=== PATIENT | female | born 1950 | race American Indian/Alaskan Native ===

== ENCOUNTER 2017-09-28 07:36 | Outpatient (CLI) | payer MEDICARE, MEDICAID ==
[~2017-09-28] VITALS: Ht 157.5 cm; Wt 59.5 kg
[2017-09-28] VITALS (8 sets, daily range): BP systolic 97–125; BP diastolic 58–71
[~2017-09-28 07:36] MED LIST: CLIN-80 PO; FAMO20TA8 PO; IBUP-1985 PO; LORA10TA7 PO; METF500T4 PO; NICO-668 PO
[2017-09-28] MEDS ORDERED: regadenoson 0.4mg/5ml syringe IV ONE ×2 (08:45→08:55)
[2017-09-28] MEDS ORDERED: aminophylline 250mg/10ml inj. IV PRN (08:45)
[2017-09-28] MEDS ORDERED: metoprolol tartrate 1mg/ml inj IV PRN (08:45)
[2017-09-28] MEDS ORDERED: nitroGLYCERIN 0.4mg SUBLingual tab SL PRN (08:45)
[2017-09-28] MEDS ORDERED: aminophylline inj. 0 ML IV ONE (08:55)
== END 2017-09-28 23:59 | disposition home or self-care (01) ==
LOC: RAD 07:36
PROVIDERS: ATTEND Internal Medicine Cardiovascular Disease
DX: Z01.818 Encounter for other preprocedural examination (principal); E11.9 Type 2 diabetes mellitus without complications; F17.200 Nicotine dependence, unspecified, uncomplicated
CPT/HCPCS: 78452; A9500; J0280

== ENCOUNTER 2018-05-11 22:22 | Emergency (ER) | payer MEDICARE, MEDICAID ==
[~2018-05-11] VITALS: Ht 157.5 cm; Wt 59.1 kg
[~2018-05-11 22:22] MED LIST changes: -CLIN-80 PO; +CLIN300C85 PO; -METF500T4 PO; +METF500T6 PO
[2018-05-11 22:43] LABS: BASOPHILS # (AUTO) 0.1 X10'3 (0-0.2); BASOPHILS % (AUTO) 0.6 % (0-1); EOSINOPHILS # (AUTO) 0.2 X10'3 (0-0.9); EOSINOPHILS % (AUTO) 1.8 % (0-6); HEMATOCRIT 35.9 % (35.0-45.0); HEMOGLOBIN 12.3 g/dl (12.0-16.0); LYMPHOCYTES # (AUTO) 3.1 X10'3 (1.1-4.8); LYMPHOCYTES % (AUTO) 30.4 % (21-51); MEAN CORPUSCULAR HEMOGLOBIN 30.6 PG (27.0-31.0); MEAN CORPUSCULAR HGB CONC 34.3 % (33.0-36.5); MEAN CORPUSCULAR VOLUME 89.3 FL (78-98); MEAN PLATELET VOLUME 8.4 FL (7.4-10.4); MONOCYTES # (AUTO) 0.6 X10'3 (0-0.9); MONOCYTES % (AUTO) 6.2 % (2-12); NEUTROPHILS # (AUTO) 6.3 X10'3 (1.8-7.7); PLATELET COUNT 288 X10'3 (140-440); RED BLOOD COUNT 4.02 X10'6 (4.20-5.60); RED CELL DISTRIBUTION WIDTH 12.8 % (11.5-14.5); WHITE BLOOD COUNT 10.3 X10'3 (4.5-11.0)
[2018-05-11 23:01] LABS: ALANINE AMINOTRANSFERASE 18 U/L (12-78); ALBUMIN 3.8 G/DL (3.4-5.0); ALBUMIN/GLOBULIN RATIO 1.2 (1.1-1.5); ALKALINE PHOSPHATASE 57 IU/L (46-116); ANION GAP 9 (8-16); ASPARTATE AMINO TRANSFERASE 13 U/L (10-37); BILIRUBIN,TOTAL 0.2 MG/DL (0.1-1.0); BLOOD UREA NITROGEN 11 MG/DL (7-18); BUN/CREATININE RATIO 12.8 (6.6-38.0); CHLORIDE 104 MMOL/L (99-107); CREATININE 0.86 MG/DL (0.40-0.90); GLUCOSE 106 MG/DL (70-104); SODIUM 140 MMOL/L (135-145); TOTAL CARBON DIOXIDE 26.9 MMOL/L (24-32); eGFR 66 ML/MIN
[2018-05-11 23:02] LABS: PARTIAL THROMBOPLASTIN TIME 26 SECONDS (22-32)
[2018-05-11] MEDS ORDERED: mag hydrox/Alum hydrox/simeth 30ml oral suspension PO ONE (23:05)
[2018-05-11] MEDS ORDERED: LIDOcaine Viscous 15ml cup PO ONE (23:05)
[2018-05-11] MEDS ORDERED: ESOM40CA PO (23:38)
[2018-05-12 00:26] VITALS: BP 98/66
== END 2018-05-12 00:27 | disposition home or self-care (01) ==
LOC: ER 22:23
DX: R07.89 Other chest pain (principal); E11.9 Type 2 diabetes mellitus without complications; F17.210 Nicotine dependence, cigarettes, uncomplicated; Z56.0 Unemployment, unspecified; Z98.890 Other specified postprocedural states; Z79.899 Other long term (current) drug therapy
CPT/HCPCS: 36415; 71045; 80053; 83880; 84484; 85025; 85610; 85730; 93005; 99285

== ENCOUNTER 2021-09-02 08:55 | Emergency (ER) | payer MEDICARE, MEDICAID ==
[~2021-09-02] VITALS: Ht 157.5 cm; Wt 59.1 kg
[~2021-09-02 08:55] MED LIST changes: +CLIN-97 PO; -CLIN300C85 PO; +ESOM40CA PO; +METF-1203 PO; -METF500T6 PO
[2021-09-02 09:08] VITALS: BP 159/93
[2021-09-02] MEDS ORDERED: PENI-88 PO (12:13)
== END 2021-09-02 12:24 | disposition home or self-care (01) ==
LOC: ER 08:56
DX: K05.219 Aggressive periodontitis, localized, unspecified severity (principal); R68.84 Jaw pain; K02.9 Dental caries, unspecified; E11.9 Type 2 diabetes mellitus without complications; Z98.890 Other specified postprocedural states; Z72.89 Other problems related to lifestyle; Z56.0 Unemployment, unspecified; Z79.2 Long term (current) use of antibiotics; Z79.899 Other long term (current) drug therapy
CPT/HCPCS: 99283

== ENCOUNTER 2021-12-07 15:06 | Emergency (ER) | payer MEDICARE, MEDICAID ==
[~2021-12-07] VITALS: Ht 157.5 cm; Wt 61.4 kg
[2021-12-07 15:52] VITALS: BP 173/76
[2021-12-07] MEDS ORDERED: TETanus/Pertussis (Acell)/Diphther VAC/PF (Tdap-Adult) 0.5ml syringe IMVAC ONE (16:00)
[2021-12-07] MEDS ORDERED: HYDROcodone/acetaminophen 5mg/325mg tablet PO ONE (16:00)
[2021-12-07] MEDS ORDERED: rabies vaccine (PCEC)/PF 2.5 unit kit IMVAC ONE (18:45)
[2021-12-07] MEDS ORDERED: HYDROcodone/acetaminophen 10/325mg tab PO ONE (18:45)
[2021-12-07] MEDS ORDERED: NAPR-56 PO (18:53)
[2021-12-07] MEDS ORDERED: AMOX-117 PO (18:53)
[2021-12-07] MEDS ORDERED: HYDR-3965 PO (18:53)
[2021-12-07] MEDS ORDERED: rabies immune globulin/PF 150 unit/ml inj IMVAC ONE (18:57)
[2021-12-07] MEDS ORDERED: RABIES IMMUNE GLOBULIN/PF 300 UNIT/ML VIAL IMVAC ONE (19:00)
== END 2021-12-07 20:10 | disposition home or self-care (01) ==
LOC: ER 15:07
DX: S42.201A Unspecified fracture of upper end of right humerus, initial encounter for closed fracture (principal); S00.81XA Abrasion of other part of head, initial encounter; M25.521 Pain in right elbow; E11.9 Type 2 diabetes mellitus without complications; Z98.890 Other specified postprocedural states; Z72.89 Other problems related to lifestyle; Z56.0 Unemployment, unspecified; Z20.3 Contact with and (suspected) exposure to rabies; Z79.2 Long term (current) use of antibiotics; Z79.899 Other long term (current) drug therapy; W54.0XXA Bitten by dog, initial encounter; Y93.89 Activity, other specified; Y92.89 Other specified places as the place of occurrence of the external cause; Y99.8 Other external cause status
CPT/HCPCS: 29105; 73030; 73080; 90376; 90471; 90472; 90675; 90715; 96372; 99284

== ENCOUNTER 2021-12-10 10:03 | Emergency (ER) | payer MEDICARE, MEDICAID ==
[~2021-12-10] VITALS: Ht 157.5 cm; Wt 61.4 kg
[~2021-12-10 10:03] MED LIST changes: +AMOX-117 PO; +HYDR-3965 PO; +NAPR-56 PO
[2021-12-10 10:35] VITALS: BP 138/72
[2021-12-10] MEDS: rabies vaccine (PCEC)/PF 2.5 unit kit IMVAC ONE (11:15)
== END 2021-12-10 11:46 | disposition home or self-care (01) ==
LOC: ER 10:04
DX: S40.871D Other superficial bite of right upper arm, subsequent encounter (principal); S51.051D Open bite, right elbow, subsequent encounter; S42.201D Unspecified fracture of upper end of right humerus, subsequent encounter for fracture with routine healing; E11.9 Type 2 diabetes mellitus without complications; Z79.899 Other long term (current) drug therapy; Z87.81 Personal history of (healed) traumatic fracture; Z98.890 Other specified postprocedural states; Z79.2 Long term (current) use of antibiotics; Z72.89 Other problems related to lifestyle; Z56.0 Unemployment, unspecified; W54.0XXD Bitten by dog, subsequent encounter
CPT/HCPCS: 29105; 90471; 90675; 99281; 99283

== ENCOUNTER 2021-12-13 09:25 | Emergency (ER) | payer MEDICARE, MEDICAID ==
[~2021-12-13] VITALS: Ht 157.5 cm; Wt 60.2 kg
[2021-12-13 09:28] VITALS: BP 177/90
[2021-12-13] MEDS ORDERED: rabies vaccine (PCEC)/PF 2.5 unit kit IMVAC ONE (10:15)
== END 2021-12-13 11:01 | disposition home or self-care (01) ==
LOC: ER 09:26
DX: S41.151D Open bite of right upper arm, subsequent encounter (principal); E11.9 Type 2 diabetes mellitus without complications; Z20.3 Contact with and (suspected) exposure to rabies; Z87.81 Personal history of (healed) traumatic fracture; Z56.0 Unemployment, unspecified; Z72.89 Other problems related to lifestyle; Z79.2 Long term (current) use of antibiotics; Z79.899 Other long term (current) drug therapy; W54.8XXD Other contact with dog, subsequent encounter
CPT/HCPCS: 90471; 90675; 99281

== ENCOUNTER 2023-08-02 23:14 | Emergency (ER) | payer MEDICARE, MEDICAID ==
[~2023-08-02] VITALS: Ht 157.5 cm; Wt 55.0 kg
[~2023-08-02 23:14] MED LIST changes: -AMOX-117 PO; -HYDR-3965 PO; -NAPR-56 PO
[2023-08-02 23:21] VITALS: BP 144/91; PULSE 94; RESP 18; O2SAT 100
--- NOTE | 2023-08-03 07:32 | NUR ---
pt accu check is 89 pt denies diabetes states she does not take any medications and wpould like to file a police report for something that happened 2 years ago, pt states she was bit by a dog 2 years ago and would like to have the dog put down, pt does not know where the dog if or who the flatbed owner operator is states pd told her they have no report, she is worried as she now has 2 pitbulls on her property charge nurse notified pt to report to animal control. [id number]
[2023-08-03 11:01] VITALS: TEMP 98.2
--- NOTE | 2023-08-03 11:20 | NUR ---
JUDICIAL REPORTER GENERAL ASSESSMENT REVIEWED BY ALISSA RN; APPROVED
== END 2023-08-03 11:01 | disposition home or self-care (01) ==
LOC: ER 23:15
DX: E11.65 Type 2 diabetes mellitus with hyperglycemia (principal); R73.03 Prediabetes; F17.200 Nicotine dependence, unspecified, uncomplicated; Z72.89 Other problems related to lifestyle; Z56.0 Unemployment, unspecified; Z87.891 Personal history of nicotine dependence; Z79.2 Long term (current) use of antibiotics; Z79.899 Other long term (current) drug therapy
CPT/HCPCS: 82948; 99283